=== PATIENT | male | born 1980 | race Caucasian/White ===

== ENCOUNTER 2022-01-26 17:05 | Emergency (ER) | payer SELFPAY ==
[2022-01-26] MEDS ORDERED: Bupivacaine PF 0.5% 30 ML VIAL ONE (17:33)
[2022-01-26] MEDS ORDERED: Bacitracin 1 PK ONE (18:33)
== END 2022-01-26 18:31 | disposition home or self-care (01) ==
LOC: CSHERS 17:05
DX: S61.214A Laceration without foreign body of right ring finger without damage to nail, initial encounter (principal); W20.8XXA Other cause of strike by thrown, projected or falling object, initial encounter
CPT/HCPCS: S0020